=== PATIENT | female | born 1990 | race Caucasian/White ===

== ENCOUNTER 2016-10-24 13:39 | Emergency (ER) | END 2016-10-24 15:25 | disposition left against medical advice (07) | LOC: UCEAST 13:39 | DX: R06.02 Shortness of breath (principal); Z53.21 Procedure and treatment not carried out due to patient leaving prior to being seen by health care provider ==

== ENCOUNTER 2016-10-25 09:09 | Emergency (ER) | payer OTHER ==
[2016-10-25 09:15] VITALS: BP 131/77
--- NOTE | 2016-10-25 10:19 | UC ---
Mindy Valdes Salem, scribed for Domitila Glover MD on 10/25/16 at 1007 . Respiratory Complaint HPI - HPI Summary HPI Summary: Patient is a 26 y/o F who presents to the with a mild cough (productive for sputum) and congestion for the past week. She reports sinus, head congestion with bilateral ear pain, chest congestion for the last couple of days, occasional SOB since 2 days ago, sore throat with drainage in the back, and chills, but denies a headache, N/V/D, or rashes. She states that she initially thought it was a cold or allergies, but sx have been worsening. She reports taking Mucinex with mild alleviation. Pt denies any recent exposure. She reports menstrual cycles are nml. Pt is a smoker. She states that her BP is typical for her. Patients medication reviewed this visit. - History of Current Complaint Chief Complaint: UCRespiratory Stated Complaint: COUGH Time Seen by Provider: 10/25/16 10:00 Hx Obtained From: Patient Hx Last Menstrual Period: 10/10/16 Onset/Duration: Gradual Onset, Lasting Days, Still Present Timing: Constant Severity Initially: Moderate Severity Currently: Moderate Character: Cough: Productive Aggravating Factors: Nothing Alleviating Factors: OTC Meds - Mucinex. Associated Signs And Symptoms: Positive: Chills, Sinus Discomfort - Risk Factors Pulmonary Embolism Risk Factors: Smoking Cardiac Risk Factors: Smoking Pseudomonas Risk Factors: Negative - Allergies/Home Medications Allergies/Adverse Reactions: Allergies Allergy/AdvReac Type Severity Reaction Status Date / Time No Known Allergies Allergy Verified 04/09/14 12:36 Home Medications: Home Medications Pseudoephedrine-Guaifenesin [Mucinex D 60-600 mg] 2 tab 10/25/16 [History] PMH/Surg Hx/FS Hx/Imm Hx - Additional Past Medical History Additional PMH: overweight, does not have regular medical care. Previously Healthy: Yes - Surgical History Surgical History: None - Family History Known Family History: Positive: Cardiac Disease, Hypertension, Diabetes, Renal Disease - Social History Occupation: Employed Full-time - administrative work. Lives: With Family - With son. Alcohol Use: Occasionally Substance Use Type: None Smoking Status (MU): Light Every Day Tobacco Smoker Type: Cigarettes Amount Used/How Often: 1/2 PPD Length of Time of Smoking/Using Tobacco: 4 years Have You Smoked in the Last Year: Yes - Immunization History Most Recent Influenza Vaccination: never Review of Systems Constitutional: Chills, Other - Head congestion. Sinus. Skin: Negative Eyes: Negative ENT: Sore Throat - with drainage., Ear Ache - Bilat, worse in right. Respiratory: Shortness Of Breath - Occasional., Cough - Mild., Other - Chest congestion. Cardiovascular: Negative Gastrointestinal: Negative Genitourinary: Negative Motor: Negative Neurovascular: Negative Musculoskeletal: Negative Neurological: Negative Psychological: Negative All Other Systems Reviewed And Are Negative: Yes Physical Exam Triage Information Reviewed: Yes Appearance: Ill-Appearing - congested, looks fatigued and unwell., Obese Vital Signs: Initial Vital Signs Temp 99.5 F 10/25/16 09:14 Pulse 97 10/25/16 09:14 Resp 18 10/25/16 09:14 BP 131/77 10/25/16 09:14 Pulse Ox 100 10/25/16 09:14 BP noted. Vital Signs Reviewed: Yes Eyes: Positive: Conjunctiva Clear ENT: Positive: Pharyngeal erythema, TM dull, TM red - right TM with erythema, bulging, + fluid., Other: - left TM retractred Dental Exam: Normal Neck: Positive: Supple, Nontender, No Lymphadenopathy Respiratory: Positive: Lungs clear, Normal breath sounds Cardiovascular: Positive: RRR, No Murmur Psychological Exam: Normal Skin Exam: Normal UC Diagnostic Evaluation - Laboratory O2 Sat by Pulse Oximetry: 100 Respiratory Course/Dx - Course Course Of Treatment: augmentin for otitis, sinusitis. - Differential Dx/Diagnosis Differential Diagnosis/HQI/PQRI: Bronchitis, Laryngitis, Sinusitis, Other - otitis media Provider Diagnoses: right otitis media, sinusitis. Discharge - Discharge Plan Condition: Stable Disposition: HOME Prescriptions: Amoxicillin/Clavulanate TAB* [Augmentin TAB 875*] 875 mg PO BID #20 tab Patient Education Materials: Otitis Media (ED) Referrals: No Primary Care Phys,NOPCP [Primary Care Provider] - Additional Instructions: You are being treated for a right ear infection and sinus infection. Please take your entire course of antibiotics. You can continue use of mucinex, and use ibuprofen as needed for pain. Smokestopping would help to decrease your risk of respiratory infections. The documentation as recorded by the Mindy glez Salem accurately reflects the service I personally performed and the decisions made by me, Domitila Glover MD.
== END 2016-10-25 10:24 | disposition home or self-care (01) ==
LOC: UCEAST 09:09
DX: H66.91 Otitis media, unspecified, right ear (principal); J01.90 Acute sinusitis, unspecified; Z72.0 Tobacco use
CPT/HCPCS: 99212; G0463

== ENCOUNTER 2017-10-09 18:04 | Emergency (ER) | payer OTHER ==
[2017-10-09 18:22] VITALS: BP 146/86
--- NOTE | 2017-10-09 19:26 | UC ---
Respiratory Complaint HPI - HPI Summary HPI Summary: Patient is a 27-year-old female presenting to the with 4 days of worsening cough, congestion, sinus pressure and pain, right ear pain. Denies any fevers, sweats, chills. Denies any abdominal pain, urinary symptoms. Denies any known sick contacts or flu contacts. Also endorses sore throat, worse with coughing. She denies any shortness of breath or chest pain. - History of Current Complaint Chief Complaint: UCRespiratory Stated Complaint: URI Time Seen by Provider: 10/09/17 18:19 Hx Obtained From: Patient Hx Last Menstrual Period: 10/10/16 ?: No Onset/Duration: Sudden Onset Timing: Constant Severity Initially: Mild Severity Currently: Mild Pain Intensity: 5 Pain Scale Used: 0-10 Numeric Character: Cough: Nonproductive Associated Signs And Symptoms: Positive: URI, Nasal Congestion, Sinus Discomfort. Negative: Dyspnea, Fever, Chills, Wheezing, Hemoptysis, Dizziness - Risk Factors Pulmonary Embolism Risk Factors: Negative Cardiac Risk Factors: Negative Pseudomonas Risk Factors: Negative Tuberculosis Risk Factors: Negative - Allergies/Home Medications Allergies/Adverse Reactions: Allergies Allergy/AdvReac Type Severity Reaction Status Date / Time No Known Allergies Allergy Verified 10/09/17 18:22 PMH/Surg Hx/FS Hx/Imm Hx Previously Healthy: Yes - Surgical History Surgical History: None - Family History Known Family History: Positive: Cardiac Disease, Hypertension, Diabetes, Renal Disease - Social History Occupation: Employed Full-time Lives: With Family Alcohol Use: Rare Substance Use Type: None Smoking Status (MU): Light Every Day Tobacco Smoker Type: Cigarettes Amount Used/How Often: 1/2 PPD Length of Time of Smoking/Using Tobacco: 4 years Have You Smoked in the Last Year: Yes - Immunization History Most Recent Influenza Vaccination: never Review of Systems Constitutional: Negative Skin: Negative ENT: Sore Throat, Nasal Discharge, Sinus Congestion Respiratory: Negative Cardiovascular: Negative Motor: Negative Neurovascular: Negative Neurological: Negative Is Patient Immunocompromised?: No All Other Systems Reviewed And Are Negative: Yes Physical Exam Triage Information Reviewed: Yes Appearance: Well-Appearing, Well-Nourished Vital Signs: Initial Vital Signs Temp 99.5 F 10/09/17 18:16 Pulse 104 10/09/17 18:16 Resp 18 10/09/17 18:16 BP 146/86 10/09/17 18:16 Pulse Ox 99 10/09/17 18:16 Vital Signs Reviewed: Yes Eye Exam: Normal Eyes: Positive: Conjunctiva Clear ENT: Positive: Nasal congestion, Sinus tenderness, Uvula midline. Negative: Pharynx normal, Pharyngeal erythema, Nasal drainage, TM bulging, TM dull, TM red , Tonsillar swelling, Tonsillar exudate, Hoarse voice, Dental tenderness Neck exam: Normal Neck: Positive: Supple, No Lymphadenopathy Respiratory Exam: Normal Respiratory: Positive: Chest non-tender Cardiovascular Exam: Normal Cardiovascular: Positive: RRR Psychological Exam: Normal Psychological: Positive: Normal Response To Family Skin Exam: Normal UC Diagnostic Evaluation - Laboratory O2 Sat by Pulse Oximetry: 99 Respiratory Course/Dx - Course Course Of Treatment: During the course of treatment, the patient is evaluated for URI versus sinusitis. Patient has diffuse tenderness to the maxillary sinus , no tenderness to the frontal sinus. Cough with congestion, however lungs are clear to auscultation. Temp is 99.5. Vital signs are otherwise stable. RRR. Patient is given Tessalon, prednisone for right ear pain, encouraged Flonase and Robitussin [id number], azithromycin for acute sinusitis and encouraged Claritin. She is okay at this time for discharge. Strep swab obtained and is negative. - Differential Dx/Diagnosis Provider Diagnoses: Sinusitis Discharge - Sign-Out/Discharge Documenting (check all that apply): Discharge/Admit/Transfer - Discharge Plan Condition: Stable Disposition: HOME Prescriptions: Azithromyxin RAZA (NF) [Z-Raza (Zithromax) 250 mg tabs #6] 2 tab PO .TODAY, THEN 1 DAILY #6 tab Benzonatate CAP* [Tessalon CAP*] 100 mg PO TID #21 cap Loratadine [Claritin 10 MG CAP] 10 mg PO DAILY #15 cap predniSONE TAB* [Deltasone TAB*] 50 mg PO DAILY #5 tab MDD 1 Patient Education Materials: Sinusitis (ED) Referrals: Mushtaq Armas MD [Primary Care Provider] - Additional Instructions: Azithromycin Prednisone, take one tablet daily, ONLY IN THE MORNING Flonase and Robitussin may be purchased [id number] for more symptomatically relief Claritin daily for any fluid buildup in pressure You may take Benadryl before bed Tessalon up to 3 times daily for cough - Billing Disposition and Condition Condition: STABLE Disposition: HOME
== END 2017-10-09 19:25 | disposition home or self-care (01) ==
LOC: UCEAST 18:04
DX: J32.9 Chronic sinusitis, unspecified (principal); H92.01 Otalgia, right ear; F17.210 Nicotine dependence, cigarettes, uncomplicated
CPT/HCPCS: 87651; 99212; G0463

== ENCOUNTER 2018-03-05 10:57 | Emergency (ER) | payer OTHER ==
[2018-03-05 11:09] VITALS: BP 136/88
--- NOTE | 2018-03-05 11:19 | UC ---
UC Dental HPI - History of Current Complaint Chief Complaint: UCDentalProblem Stated Complaint: DENTAL PAIN Time Seen by Provider: 03/05/18 11:01 Hx Obtained From: Patient Hx Last Menstrual Period: 01/27/18 ?: No Onset/Duration: Lasting Weeks Severity: Severe Pain Intensity: 10 Aggravating Factor(s): Heat, Cold - Allergies/Home Medications Allergies/Adverse Reactions: Allergies Allergy/AdvReac Type Severity Reaction Status Date / Time No Known Allergies Allergy Verified 10/09/17 18:22 PMH/Surg Hx/FS Hx/Imm Hx Previously Healthy: Yes - Surgical History Surgical History: None - Family History Known Family History: Positive: Cardiac Disease, Hypertension, Diabetes, Renal Disease - Social History Alcohol Use: Rare Substance Use Type: None Smoking Status (MU): Light Every Day Tobacco Smoker Type: Cigarettes Amount Used/How Often: 1/2 PPD Length of Time of Smoking/Using Tobacco: 4 years Have You Smoked in the Last Year: Yes - Immunization History Most Recent Influenza Vaccination: never Review of Systems Constitutional: Negative Skin: Negative Eyes: Negative ENT: Other - dental pain predominantly right sided last week or so, needs bilateral root canals Cardiovascular: Negative Gastrointestinal: Negative Genitourinary: Negative All Other Systems Reviewed And Are Negative: Yes Physical Exam Triage Information Reviewed: Yes Appearance: Well-Appearing, Pain Distress Vital Signs: Initial Vital Signs Temp 36.6 C 03/05/18 11:07 Pulse 93 03/05/18 11:07 Resp 17 03/05/18 11:07 BP 136/88 03/05/18 11:07 Pulse Ox 98 03/05/18 11:07 Vital Signs Reviewed: Yes Eye Exam: Normal ENT Exam: Normal ENT: Positive: Normal ENT inspection Dental: Positive: Percussion Tenderness @ - right upper posterior molar , no fractured or broken teeth Neck exam: Normal Neck: Positive: Supple Respiratory Exam: Normal Dental Complaint Course/Dx - Differential Dx/Diagnosis Provider Diagnoses: dental abscess Discharge - Sign-Out/Discharge Documenting (check all that apply): Patient Departure All imaging exams completed and their final reports reviewed: Yes - Discharge Plan Condition: Good Disposition: HOME Prescriptions: Amoxicillin PO (*) [Amoxicillin 875 MG (*)] 875 mg PO BID #14 tab Fluconazole [Diflucan 100 mg tab] 100 mg PO ONCE #1 tab Referrals: No Primary Care Phys,NOPCP [Primary Care Provider] - - Billing Disposition and Condition Condition: GOOD Disposition: Home
== END 2018-03-05 11:33 | disposition home or self-care (01) ==
LOC: UCEAST 10:57
DX: K04.7 Periapical abscess without sinus (principal); F17.210 Nicotine dependence, cigarettes, uncomplicated
CPT/HCPCS: 99212; G0463